=== PATIENT | male | born 1955 | race Caucasian/White ===

== ENCOUNTER 2018-04-17 10:21 | Day surgery (SDC) | payer OTHER, MEDICAID ==
[~2018-04-17 10:21] MED LIST: CEFAZOLIN 2 GM/50 ML (PMX) 50 ML IVPB
[2018-04-17] MEDS ORDERED: LIDOCAINE 2% (SDV) 5 ML INJ (11:38)
[2018-04-17] MEDS ORDERED: PROPOFOL 20 ML (11:38)
[2018-04-17] MEDS ORDERED: FENTAnyl 50 MCG/ML VIAL (11:41)
[2018-04-17] MEDS: BUPIVACAINE 0.5% (SDV) 30 ML INJ (12:07)
[2018-04-17] MEDS ORDERED: ATROPINE 1 MG/10 ML SYRINGE (12:29)
[2018-04-17] MEDS ORDERED: METOCLOPRAMIDE 10 MG INJ IV (13:00)
[2018-04-17] MEDS ORDERED: FENTAnyl 50 MCG/ML VIAL IV ×3 (13:00)
[2018-04-17] MEDS ORDERED: ONDANSETRON 4 MG INJ IV (13:00)
[2018-04-17] MEDS ORDERED: hydrALAzine 20 MG INJ IV (13:00)
[2018-04-17] MEDS ORDERED: DIPHENHYDRAMINE 50 MG INJ IV (13:00)
[2018-04-17] MEDS ORDERED: OXYCODONE/ACETAMINOPHEN (5/325) TAB PO ×2 (13:00)
[2018-04-17] MEDS ORDERED: MEPERIDINE 25 MG INJ IV (13:00)
[2018-04-17] MEDS ORDERED: LABETALOL HCL 20MG INJ IV (13:00)
[2018-04-17] MEDS ORDERED: EPHEDrine SULFATE 50 MG/5 ML SYG IV (13:00)
[2018-04-17] MEDS ORDERED: MIDAZOLAM 1 MG/ML 2 ML INJ IV (13:00)
[2018-04-17] MEDS ORDERED: IBUPROFEN 800 MG TAB PO (13:00)
== END 2018-04-17 14:20 | disposition home or self-care (01) ==
LOC: SDS 10:21
DX: N47.1 Phimosis (principal); N48.0 Leukoplakia of penis
CPT/HCPCS: 54161; 88304